=== PATIENT | female | born 1975 | race Caucasian/White ===

== ENCOUNTER 2023-03-21 11:19 | Outpatient (REF) | payer BC, SELFPAY ==
--- NOTE | ~2023-03-21 | XR_ITS ---
EXAMINATION: XR CHEST 2 VIEW CLINICAL INFORMATION: Bronchitis COMPARISON: None TECHNIQUE: PA and lateral views of the chest obtained. FINDINGS: The lungs are clear. There are no pleural effusions. The cardiomediastinal silhouette is nonenlarged. Prior sternotomy, valve replacement and vascular stent are noted. XR/XR chest 2V IMPRESSION: No acute cardiopulmonary disease.
[2023-03-21 13:33] LABS: MANUAL DIFF FLAG NO
[2023-03-21 13:51] LABS: Basophils Absolute Auto 0.1 X10*3/uL (0.0-0.2); Basophils Percent Auto 1.2 % (0-2); Eosinophils Absolute Auto 0.5 X10*3/uL (0.0-0.4); Eosinophils Percent Auto 4.9 % (0-4); Hematocrit 39.5 % (37.0-47.0); Hemoglobin 12.9 g/dl (12.0-16.0); Imm Gran Abs Auto 0.05 X10*3/uL (0.00-0.03); Imm Gran Pct Auto 0.5 % (0.0-0.4); Lymphocytes Absolute Auto 1.8 X10*3/uL (1.2-4.9); Mean Corpuscular HGB Conc 32.7 g/dl (31.0-35.0); Mean Corpuscular Hemoglobin 30.1 pg (27.0-33.0); Mean Corpuscular Volume 92.3 fL (80.0-98.0); Mean Platelet Volume 10.2 fL (9.4-12.3); Monocytes Absolute Auto 0.5 X10*3/uL (0.1-1.2); Monocytes Percent Auto 5.5 % (2-11); Neutrophils Absolute Auto 6.5 x10*3/uL (2.0-8.3); Neutrophils Percent Auto 68.9 % (45-73); Platelet Count 385 X10*3/uL (160-400); Red Blood Count 4.28 X10*6/uL (4.20-5.50); Red Cell Distribution Width 13.1 % (11.0-16.0); White Blood Count 9.5 X10*3/uL (4.8-10.8)
[2023-03-21 14:31] LABS: Alanine Aminotransferase 33 U/L (0-31); Albumin Level 4.4 g/dL (3.5-5.0); Alkaline Phosphatase 62 U/L (39-117); Anion Gap 11 (12-20); Aspartate Amino Transferase 28 U/L (5-31); Bilirubin Total 0.4 mg/dL (0.0-1.0); Blood Urea Nitrogen 8 mg/dL (9-16); C Reactive Protein 0.85 mg/dL (< or = 0.50); Calcium 9.6 mg/dL (8.4-10.2); Carbon Dioxide 25 mmol/L (22-29); Chloride 107 mmol/L (96-108); Estimated Glomerular Filt Rate > 60; Glucose Random 99 mg/dL (60-115); Potassium 3.8 mmol/L (3.3-5.1); Sodium 139 mmol/L (135-145)
== END 2023-03-21 11:20 | disposition home or self-care (01) ==
LOC: HO.HMGCX 11:19
PROVIDERS: PCP Internal Medicine; Visit Provider Internal Medicine
DX: J40 Bronchitis, not specified as acute or chronic (principal)
CPT/HCPCS: 36415; 71046; 80053; 85025; 86140

== ENCOUNTER 2023-12-29 08:08 | Outpatient (REF) | payer BC, SELFPAY ==
[2023-12-29 11:40] LABS: MANUAL DIFF FLAG NO
[2023-12-29 11:48] LABS: Basophils Absolute Auto 0.1 X10*3/uL (0.0-0.2); Basophils Percent Auto 0.9 % (0-2); Eosinophils Absolute Auto 0.3 X10*3/uL (0.0-0.4); Eosinophils Percent Auto 3.8 % (0-4); Hematocrit 39.8 % (37.0-47.0); Hemoglobin 13.3 g/dl (12.0-16.0); Imm Gran Abs Auto 0.04 X10*3/uL (0.00-0.03); Imm Gran Pct Auto 0.5 % (0.0-0.4); Lymphocytes Absolute Auto 3.2 X10*3/uL (1.2-4.9); Lymphocytes Percent Auto 37.3 % (20-40); Mean Corpuscular HGB Conc 33.4 g/dl (31.0-35.0); Mean Corpuscular Hemoglobin 30.9 pg (27.0-33.0); Mean Corpuscular Volume 92.3 fL (80.0-98.0); Mean Platelet Volume 9.8 fL (9.4-12.3); Monocytes Absolute Auto 0.7 X10*3/uL (0.1-1.2); Monocytes Percent Auto 8.7 % (2-11); Neutrophils Absolute Auto 4.1 x10*3/uL (2.0-8.3); Neutrophils Percent Auto 48.8 % (45-73); Platelet Count 339 X10*3/uL (160-400); Red Blood Count 4.31 X10*6/uL (4.20-5.50); Red Cell Distribution Width 13.1 % (11.0-16.0); White Blood Count 8.5 X10*3/uL (4.8-10.8)
[2023-12-29 12:22] LABS: Alanine Aminotransferase 27 U/L (0-31); Albumin Level 4.1 g/dL (3.5-5.0); Alkaline Phosphatase 63 U/L (39-117); Anion Gap 13 (12-20); Aspartate Amino Transferase 21 U/L (5-31); Bilirubin Total 0.4 mg/dL (0.0-1.0); Blood Urea Nitrogen 11 mg/dL (9-16); Calcium 9.3 mg/dL (8.4-10.2); Carbon Dioxide 22 mmol/L (22-29); Chloride 108 mmol/L (96-108); Cholesterol 176 mg/dL (<200); Estimated Glomerular Filt Rate > 60; Glucose Fasting 91 mg/dL (60-99); HDL Cholesterol 51 mg/dL (>40); LDL Cholesterol Calculated 106 mg/dL (<100); Potassium 4.3 mmol/L (3.3-5.1); Sodium 139 mmol/L (135-145); Thyroid Stimulating Hormone 3.57 uIU/mL (0.32-4.0); Total Protein 7.3 g/dL (6.5-8.0); Triglycerides 98 mg/dL (<150); Vitamin D 25-OH Total 32.6 ng/mL (>30)
== END 2023-12-29 08:09 | disposition home or self-care (01) ==
LOC: HO.HMGCLDS 08:08
PROVIDERS: PCP Internal Medicine; Visit Provider Internal Medicine
DX: Z00.00 Encounter for general adult medical examination without abnormal findings (principal); I34.0 Nonrheumatic mitral (valve) insufficiency; Q25.1 Coarctation of aorta
CPT/HCPCS: 36415; 80053; 80061; 82306; 84443; 85025

== ENCOUNTER 2024-07-25 15:14 | Outpatient (AMB) | payer BC, SELFPAY ==
--- NOTE | 2024-07-25 15:26 | A.OFFPC_ITS ---
Vital Signs 07/25/24 15:27 Height 5 ft 4.25 in Weight 199 lb BMI 33.9 BP 118/72 Blood Pressure Location Lt brachial Position Sitting Pulse 103 H Temp 97.3 F Pulse Oximetry (%) 99 Intake Visit Reasons: 6 month follow up Intake Note: Patient in for a 6 month follow up. She has no health concerns. Allergies No Known Allergies Allergy (Verified 07/25/24 16:03) Medication List - Last Reconciled 07/25/24 by Stephanie Vargas PA-C aspirin 81 mg PO DAILY multivitamin 1 tab PO DAILY semaglutide (Ozempic) 0.25 mg (0.368 mL) subcut QWEEK PFS Surgical History H/O section Status post aortic coarctation stent placement Physical exam (Primary Care) Vital Signs: Last Vital Signs Temp 97.3 F 07/25/24 15:27 Pulse 103 H 07/25/24 15:27 BP 118/72 07/25/24 15:27 Pulse Ox 99 07/25/24 15:27 Care Plan Goal for BP management: 130/80 within goal today BMI result Body Mass Index 33.9 BMI Assessment/Plan discussion: High BMI High, discussed plan: lifestyle, weight reduction, dietary, physical activity, alcohol moderation and other (Refer to site manager along with attempt to start patient on Ozempic) Coding Level of Care Code New Pt Level 4 (13840) Complex EM visit Add On G2211 Diagnoses Obesity (BMI 30.0-34.9) E66.811 Mitral valve regurgitation I34.0 Bicuspid aortic valve Q23.81 Coarctation of aorta Q25.1 Hyperlipidemia E78.5 Assessment & Plan Assessment & Plan (1) Obesity (BMI 30.0-34.9): Code(s): E66.811 - Obesity, class 1 Category: Medical Plan: Patient has lost approximately 7 lb since her last visit in December. She continues to diet and exercise. Will refer to site manager and sent a prescription for Ozempic for obesity, heart disease and hyperlipidemia. Condition is chronic and stable. (2) Mitral valve regurgitation: Comment: History of mitral valve repair Code(s): I34.0 - Nonrheumatic mitral (valve) insufficiency Category: Medical Plan: Condition is chronic and stable. Patient being followed by cardiology at [facility] will retrieve records. (3) Bicuspid aortic valve: Code(s): Q23.81 - Bicuspid aortic valve Category: Medical Plan: Condition is chronic and stable. Patient being followed by cardiology at [facility] will retrieve records. (4) Coarctation of aorta: Code(s): Q25.1 - Coarctation of aorta Category: Medical Plan: Condition is chronic and stable. Patient being followed by cardiology at [facility] will retrieve records. (5) Hyperlipidemia: Code(s): E78.5 - Hyperlipidemia, unspecified Category: Medical Plan: Will repeat labs. Patient will continue to trial diet exercise. Will attempt to send Ozempic to the patient's pharmacy for weight loss, heart disease and hyperlipidemia control. Patient does not want to be started on a statin at this time. Condition is chronic and stable will continue to monitor. Plan Plan - Continue aspirin therapy for cardiac protection. - Reassess lipid profile to evaluate LDL cholesterol levels. - Referral to a site manager for dietary consultation and support. - Submit a prescription request for Ozempic weekly 25 units) to aid in weight loss, if insurance approved. - Order blood work to include CBC, Hemoglobin A1c, comprehensive metabolic panel, lipid panel, liver enzymes, magnesium, TSH, , and Vitamin D, with instructions to fast prior to testing. Orders: Orders Complete Blood Count Auto Diff Today E66.811 - Obesity, class 1, I34.0 - Nonrheumatic mitral (valve) insufficiency, Q23.81 - Bicuspid aortic valve, Q25.1 - Coarctation of aorta Magnesium Today E66.811 - Obesity, class 1, I34.0 - Nonrheumatic mitral (valve) insufficiency, Q23.81 - Bicuspid aortic valve, Q25.1 - Coarctation of aorta TSH reflex Free T4 Today E66.811 - Obesity, class 1, I34.0 - Nonrheumatic mitral (valve) insufficiency, Q23.81 - Bicuspid aortic valve, Q25.1 - Coarctation of aorta Vitamin B12 and Folate Today E66.811 - Obesity, class 1, I34.0 - Nonrheumatic mitral (valve) insufficiency, Q23.81 - Bicuspid aortic valve, Q25.1 - Coarctation of aorta Erythrocyte Sedimentation Rate Today E66.811 - Obesity, class 1, I34.0 - Nonrheumatic mitral (valve) insufficiency, Q23.81 - Bicuspid aortic valve, Q25.1 - Coarctation of aorta Hemoglobin A1c Today E66.811 - Obesity, class 1, I34.0 - Nonrheumatic mitral (valve) insufficiency, Q23.81 - Bicuspid aortic valve, Q25.1 - Coarctation of aorta Comprehensive [place]. Panel Fast Today E66.811 - Obesity, class 1, I34.0 - Nonrheumatic mitral (valve) insufficiency, Q23.81 - Bicuspid aortic valve, Q25.1 - Coarctation of aorta Liver Panel Today E66.811 - Obesity, class 1, I34.0 - Nonrheumatic mitral (valve) insufficiency, Q23.81 - Bicuspid aortic valve, Q25.1 - Coarctation of aorta Lipid Panel Today E66.811 - Obesity, class 1, I34.0 - Nonrheumatic mitral (valve) insufficiency, Q23.81 - Bicuspid aortic valve, Q25.1 - Coarctation of aorta Vitamin D 25-OH Total Today E66.811 - Obesity, class 1, I34.0 - Nonrheumatic mitral (valve) insufficiency, Q23.81 - Bicuspid aortic valve, Q25.1 - Coarctation of aorta C Reactive Protein Today E66.811 - Obesity, class 1, I34.0 - Nonrheumatic mitral (valve) insufficiency, Q23.81 - Bicuspid aortic valve, Q25.1 - Coarctation of aorta Referrals Supervisor Public Health Nursing Nutrition Referral E66.9 - Obesity, unspecified Medications: New semaglutide (Ozempic) for 4 weeks 0.25 mg (0.368 mL) subcut QWEEK 3 mL 1RF obesity Patient Instructions: Patient Instructions - Continue aspirin and multivitamin as prescribed. - Visit the lab for blood tests as ordered; fast before the appointment. - Await notification about Ozempic approval from your pharmacy. - Consult with the site manager once referred to discuss diet and lifestyle. - Follow up in one month or earlier if any concerns arise before that time. - Contact the office if you experience any new symptoms or issues with medications. Scribe Plan - Not visible on output: History of Present Illness The patient is a 49-year-old female presenting with concerns related to weight management and potential obesity treatment. She is attending a six-month follow- up visit to assess progress and discuss ongoing management options. Her pertinent medical history includes congenital heart disease and a history of open heart surgery performed in 2007, entailing a mitral valve repair and bicuspid aortic valve monitoring, which remains unrepaired. She is currently on a regimen of aspirin and a multivitamin for these conditions. The patient has attempted weight loss via [employer] upon previous medical advice. Initially successful, losing approximately seven pounds, progress stalled, possibly due to the holiday season. Her weight decreased from 206 pounds to 199 pounds. Despite these efforts, she is interested in exploring additional weight management options, potentially including pharmacotherapy. Her last blood work, conducted approximately seven months prior, showed elevated LDL cholesterol at 106 mg/dL, prompting a re-evaluation during this visit. She denies any significant changes in symptoms but expresses a willingness to try alternative management strategies, noting insurance coverage may support pharmaceutical interventions for weight loss. Social History - The patient occasionally consumes alcohol but does not smoke. - Engaged in a weight loss program ([employer]) as part of lifestyle changes. - No family history of thyroid disease, colon cancer, or breast cancer reported. Review of Systems - Cardiovascular: Denies recent chest pain or palpitations. - Endocrine: Denies any new thyroid-related symptoms. - Gastrointestinal: Denies any new digestive symptoms. - Hematologic: Denies significant bleeding or bruising. - Respiratory: Denies recent cough, wheezing, or shortness of breath. Physical Exam Appearance: Alert. Oriented X3. No acute distress. Head: Normal external exam. Normocephalic. Atraumatic. Eyes: Pupils are equal, round, and reactive to light. Extraocular movements intact. Conjunctiva and sclera normal. Eyelids normal. Ears: External auditory canal normal. Tympanic membranes normal. Throat: Pharynx normal. Uvula midline. Moist mucous membranes. Neck: Normal inspection. Neck supple. Full range of motion. No adenopathy. Thyroid Normal. No meningeal signs. No neck mass noted. Cardiovascular: Normal heart rate and rhythm. Heart sound normal. Slight murmur noted. Pulses normal throughout. Respiratory: No respiratory distress. Painless inspiration. Breath sounds normal. No wheezes/rales/rhonchi noted. Chest nontender. No accessory muscle usage noted or decreased air movement noted. Abdomen: Soft and nontender. Bowel sounds normal in all 4 quadrants. No distention noted. No organomegaly noted. No visible injury noted. Back: No costovertebral angle tenderness. Full range of motion noted. Skin: Skin warm and dry. Normal skin color. Normal skin turgor. No rashes/lesions/lacerations noted. Extremities: No lower extremity edema. Extremities exhibit normal range of motion. Extremities nontender. Neuro: Oriented X 3. No motor deficit. No sensory deficit. Reflexes normal. Results - Labs: Elevated LDL cholesterol previously at 106 mg/dL. Plan - Continue aspirin therapy for cardiac protection. - Reassess lipid profile to evaluate LDL cholesterol levels. - Referral to a site manager for dietary consultation and support. - Submit a prescription request for Ozempic weekly 25 units) to aid in weight loss, if insurance approved. - Order blood work to include CBC, Hemoglobin A1c, comprehensive metabolic panel, lipid panel, liver enzymes, magnesium, TSH, , and Vitamin D, with instructions to fast prior to testing. Patient was informed and verbally consented to the use of an ambient scribe for clinic note documentation during this visit. Discussion Notes During this visit, we discussed the progress of the patient's weight management efforts and reviewed options for medical intervention. I advised that should the patient's insurance approve the coverage, we could trial Ozempic, specifically initiated at a dose of 25 units weekly, considering her background of congenital heart disease, which might leverage approval based on associated comorbidities. We also comprehensively reviewed the required blood work to ensure a holistic assessment of the patient's general health status and potential metabolic concer ns. A referral to a site manager will aid in reinforcing dietary modifications alongside pharmacological intervention. Follow-up in one month was suggested to reassess the progress, review blood work outcomes, and confirm insurance feedback on the prescribed Ozempic. The patient agreed to this plan and expressed understanding and consent for the suggested interventions. Patient Instructions - Continue aspirin and multivitamin as prescribed. - Visit the lab for blood tests as ordered; fast before the appointment. - Await notification about Ozempic approval from your pharmacy. - Consult with the site manager once referred to discuss diet and lifestyle. - Follow up in one month or earlier if any concerns arise before that time. - Contact the office if you experience any new symptoms or issues with medications.
[2024-07-25 15:27] VITALS: BP 118/72; PULSE 103; TEMP 36.3; O2SAT 99; BMI 33.9
== END 2024-07-25 15:55 | disposition home or self-care (01) ==
LOC: HO.HMCSH 15:14
PROVIDERS: PCP Internal Medicine; Visit Provider Physician Assistant Medical
DX: E66.811 Obesity, class 1 (principal); I34.0 Nonrheumatic mitral (valve) insufficiency; Q23.81 Bicuspid aortic valve; Q25.1 Coarctation of aorta; E78.5 Hyperlipidemia, unspecified

== ENCOUNTER → 2024-07-25 15:14 | Outpatient (BNVA) | payer BC, SELFPAY | PROVIDERS: PCP Internal Medicine; Visit Provider Physician Assistant Medical ==

== ENCOUNTER 2024-07-26 07:35 | Outpatient (REF) | payer BC, SELFPAY ==
[2024-07-26 10:06] LABS: MANUAL DIFF FLAG NO
[2024-07-26 10:20] LABS: Basophils Absolute Auto 0.1 X10*3/uL (0.0-0.2); Basophils Percent Auto 0.6 % (0-2); Eosinophils Absolute Auto 0.2 X10*3/uL (0.0-0.4); Eosinophils Percent Auto 2.5 % (0-4); Hemoglobin 13.8 g/dl (12.0-16.0); Imm Gran Abs Auto 0.04 X10*3/uL (0.00-0.03); Imm Gran Pct Auto 0.4 % (0.0-0.4); Lymphocytes Absolute Auto 2.5 X10*3/uL (1.2-4.9); Lymphocytes Percent Auto 26.8 % (20-40); Mean Corpuscular HGB Conc 33.7 g/dl (31.0-35.0); Mean Corpuscular Hemoglobin 30.7 pg (27.0-33.0); Mean Corpuscular Volume 91.1 fL (80.0-98.0); Mean Platelet Volume 9.9 fL (9.4-12.3); Monocytes Absolute Auto 0.7 X10*3/uL (0.1-1.2); Monocytes Percent Auto 7.8 % (2-11); Neutrophils Absolute Auto 5.9 x10*3/uL (2.0-8.3); Neutrophils Percent Auto 61.9 % (45-73); Platelet Count 359 X10*3/uL (160-400); Red Cell Distribution Width 12.8 % (11.0-16.0); White Blood Count 9.5 X10*3/uL (4.8-10.8)
[2024-07-26 10:35] LABS: Estimated Average Glucose 105 mg/dL; Hemoglobin A1C 126.2693 umol/L; Hemoglobin A1c % 5.3 % (<6.0); Total Hemoglobin (HGBA1C) 3625.3814 umol/L
[2024-07-26 10:50] LABS: Alanine Aminotransferase 18 U/L (0-31); Albumin Level 4.3 g/dL (3.5-5.0); Alkaline Phosphatase 54 U/L (39-117); Anion Gap 10 (12-20); Aspartate Amino Transferase 24 U/L (5-31); Bilirubin Direct 0.2 mg/dL (0.0-0.5); Bilirubin Total 0.5 mg/dL (0.0-1.0); Blood Urea Nitrogen 13 mg/dL (9-16); C Reactive Protein 0.69 mg/dL (< or = 0.50); Calcium 9.4 mg/dL (8.4-10.2); Carbon Dioxide 22 mmol/L (22-29); Chloride 111 mmol/L (96-108); Cholesterol 172 mg/dL (<200); Estimated Glomerular Filt Rate > 60; Glucose Fasting 96 mg/dL (60-99); HDL Cholesterol 54 mg/dL (>40); LDL Cholesterol Calculated 99 mg/dL (<100); Magnesium 1.9 mg/dL (1.6-2.6); Potassium 4.2 mmol/L (3.3-5.1); Sodium 139 mmol/L (135-145); Total Protein 7.9 g/dL (6.5-8.0); Triglycerides 97 mg/dL (<150)
[2024-07-26 10:57] LABS: Erythrocyte Sedimentation Rate 14 MM/HR (0-20)
[2024-07-26 11:09] LABS: Folate 15.8 ng/mL (> or = 4.0); Vitamin B12 425 pg/mL (200-900)
[2024-07-26 11:12] LABS: TSH reflex Free T4 3.42 uIU/mL (0.32-4.0)
== END 2024-07-26 07:36 | disposition home or self-care (01) ==
LOC: HO.HMGCLDS 07:35
PROVIDERS: PCP Internal Medicine; Visit Provider Physician Assistant Medical
DX: Q25.1 Coarctation of aorta (principal); Q23.81 Bicuspid aortic valve; I34.0 Nonrheumatic mitral (valve) insufficiency; E66.811 Obesity, class 1; Z13.1 Encounter for screening for diabetes mellitus
CPT/HCPCS: 36415; 80053; 80061; 80076; 82248; 82306; 82607; 82746; 83036; 83735; 84443; 85025; 85652; 86140

== ENCOUNTER 2024-09-26 15:46 | Outpatient (AMB) | payer BC, SELFPAY ==
--- NOTE | 2024-09-26 15:45 | A.OFFPC_ITS ---
Vital Signs 09/26/24 16:01 Height 5 ft 3.5 in Weight 200 lb BMI 34.9 BP 140/80 H Blood Pressure Location Rt brachial Pulse 77 Pulse Source Pulse Oximeter Temp 97.3 F Pulse Oximetry (%) 99 Intake Visit Reasons: follow up Allergies No Known Allergies Allergy (Verified 09/26/24 17:00) Medication List - Last Reconciled 09/26/24 by Stephanie Vargas PA-C aspirin 81 mg PO DAILY metformin 500 mg PO DAILY multivitamin 1 tab PO DAILY PFSH Medical History Vitamin D deficiency Obesity (BMI 30.0-34.9) Mitral valve regurgitation Bicuspid aortic valve Coarctation of aorta Splenic infarct Hyperlipidemia Surgical History H/O section Status post aortic coarctation stent placement Questionnaire PHQ-9 Over the last 2 weeks, how often have you been bothered by any of the following problems? 1. Little interest or pleasure in doing things: not at all 2. Feeling down, depressed, or hopeless: not at all 3. Trouble falling or staying asleep, or sleeping too much: not at all 4. Feeling tired or having little energy: not at all 5. Poor appetite or overeating: not at all 6. Feeling bad about yourself - or that you are a failure or have let yourself or your family down: not at all 7. Trouble concentrating on things, such as reading the newspaper or watching te levision: not at all 8. Moving or speaking so slowly that other people could have noticed. Or the opposite - being so fidgety or restless that you have been moving around a lot more than usual: not at all 9. Thoughts that you would be better off or of hurting yourself in some way: not at all Total score: 0 Depression Screening Interpretation: Negative Depression Screening Done: Yes 05157 - PHQ-9 Billing: Yes Source: Developed by Drs. Sukhjinder La, Abbie Lovett, Benjy Glover and colleagues, with an educational lakshmi from [email or web address]. Thrive Questionnaire Date Thrive assessed: 09/26/24 I am a: Patient What is your living situation today?: I have a steady place to live Within the past 12 months, did the food you bought not last and you didn't have the money to get more?: Never true Within the past 12 months, did you worry whether your food would run out before you got money to buy more?: Never true Do you have trouble paying for medicines?: No Do you have trouble getting transportation to medical appointments?: No Do you have trouble paying your heating and electricity bill?: No Do you have trouble taking care of your child, family member or friend?: No Do you have trouble with day-to-day activities such as bathing, preparing meals, shopping, managing finances, etc.?: No Are you currently unemployed and looking for a job?: No Are you interested in more education?: No THRIVE Score: 0 AUDIT C Alcohol Use Questionnaire (AUDIT-C) 1. How often do you have a drink containing alcohol?: 2-4 times a month 2. How many drinks containing alcohol do you have on a typical day when you are drinking?: 1 or 2 3. How often do you have six or more drinks on one occasion?: Never Total Score: 2 Score Reviewed/Action Taken: No HERMES-7 AMB Questionnaire HERMES-7 Date HERMES - 7 assessed: 09/26/24 Feeling nervous, anxious, or on edge: 0 = Not at all Not being able to stop or control worryin = Not at all Worrying too much about different things: 0 = Not at all Trouble relaxin = Not at all Being so restless that it is hard to sit still: 0 = Not at all Becoming easily annoyed or irritable: 0 = Not at all Feeling afraid as if something awful might happen: 0 = Not at all Total HERMES-7 score (0-4 normal; 5-9 mild; 10-14 moderate; 15-21 severe): 0 Source: Developed by Drs. Sukhjinder La, Abbie Lovett, Benjy Glover and colleagues, with an educational lakshmi from [email or web address]. HERMES-7 Assessment Billing HERMES-7 Assessment Tool: HERMES-7 Assessment 67842 Physical exam (Primary Care) Vital Signs: Last Vital Signs Temp 97.3 F 09/26/24 16:01 Pulse 77 09/26/24 16:01 BP 140/80 H 09/26/24 16:01 Pulse Ox 99 09/26/24 16:01 Care Plan Goal for BP management: <130/80 patient is currently on aspirin 81 mg. She has been taking her blood pressure at home with a machine that her insurance sent her and her blood pressure has been 120 over 80s. It may be that we have a small cuff here in the office and not her appropriate size. Will continue current regimen. Patient does not need any antihypertensive at this time. BMI result Body Mass Index 34.9 BMI Assessment/Plan discussion: High (Patient was also started on metformin 500 mg by her insurance company) BMI High, discussed plan: lifestyle, weight reduction, dietary, physical activity and alcohol moderation PHQ-9: PHQ-9 Score PHQ-9: Total score 0 09/26/24 17:06 Depression Screening Interpretation: Negative Thrive Assessment: Date of Thrive Assessment Date Thrive assessed 09/26/24 09/26/24 17:06 Coding Level of Care Code Est Pt Level 3 (57382) Complex EM visit Add On G2211 Diagnoses Obesity (BMI 30.0-34.9) E66.811 Additional Codes HERMES-7 Assessment Billing - HERMES-7 Assessment Tool: HERMES-7 Assessment 38921 ([id number]) PHQ-9 - 87212 - PHQ-9 Billing: Yes ([id number]) Assessment & Plan Assessment & Plan (1) Obesity (BMI 30.0-34.9): Code(s): E66.811 - Obesity, class 1 Category: Medical Plan: Metformin therapy will be continued to assist in weight management. The off- label use for weight reduction is being monitored, and titration of dose is scheduled in two weeks. Patient to return in 3 months. Condition is chronic and stable continue to monitor. Plan Plan Patient was informed and verbally consented to the use of an ambient scribe for clinic note documentation during this visit. 1. Prediabetes Suspicion Monitor and encourage lifestyle changes to avoid diabetes progression. 2. Elevated Blood Pressure Monitor at home; follow-up in two weeks with results. 3. Status Post Mitral Valve Surgery Routine cardiovascular follow-up to prevent complications. 4. Hypertension Ensure control through lifestyle adjustments and monitoring. 5. Hyperlipidemia Follow-up labs and potential medication adjustments for lipid management. 6. Obesity Metformin therapy will be continued to assist in weight management. The off- label use for weight reduction is being monitored, and titration of dose is scheduled in two weeks. 7. Heart Failure Ongoing cardiovascular monitoring due to historical heart failure. Discussion Notes During the visit, we discussed issues related to the insurance company?s restrictive approach, which affects the patient?s access to weight loss options. Off-label metformin use was sanctioned based on cost and availability. The prescription's limitations were highlighted alongside a consideration for follow-up evaluations to ensure efficacy and safety. The patient received instructions to use an everett for health tracking, monitoring blood pressure at home, and submitting necessary health data. Potential adjustments to medication and follow-up were considered if the patient encounters adverse outcomes or inadequate response to the current treatment. Patient Instructions: Patient Instructions - Continue taking metformin as prescribed and increase the dose in two weeks as instructed. - Monitor your blood pressure regularly at home and record readings. - Use the [employer] everett for tracking weight and lifestyle as requested by insurance. - Report any significant changes in health or responses to the metformin therapy. - Follow up with plans to visit the office in three months or sooner if complications arise. - Maintain dietary modifications to support weight and lipid management. - Stay informed about any updates regarding insurance coverage and approved interventions. Scribe Plan - Not visible on output: History of Present Illness The patient is a 49-year-old female presenting with issues related to ongoing weight management and insurance coverage for weight loss medication. The patient's insurance has become more stringent as of July 04, notably impacting her access to different treatment options. Although she is not diabetic, she was started on metformin, which her provider prescribed off-label for weight loss due to its availability and affordability. She began the medication earlier this week and plans to increase her dosage in two weeks. Her challenges include adherence to insurer-mandated digital tracking via the [employer] everett without sufficient coverage for alternative therapies, such as injectables, due to upfront cost restrictions. The patient has a medical history significant for heart failure, post-mitral valve regurgitation correction, obesity, hypertension, and hyperlipidemia. While she has performed routine blood pressure monitoring at home yielding typical results, today's clinical reading showed an elevated level, and she recognizes stress and recent medication adjustments as possible factors. Social History - Patient reports issues with insurance coverage impacting her access to weight loss medications. - Use of [employer] everett for health monitoring, requiring lifestyle and weight tracking for insurance purposes. - Limited physical activity mentioned, possibly implicating in the ongoing management of obesity. - Currently adjusting to medication regimens, including the use of metformin for weight management. - Patient highlights issues with [place] dietary norms and an expressed concern over accessing affordable health resources. Review of Systems - Cardiovascular: Reports previous history of heart failure. - Endocrine: Denies diabetes; prescribed metformin for weight management. - General: Reports challenges managing weight; concerned about insurance obstacles affecting treatment. Physical Exam Appearance: Alert. Oriented X3. No acute distress. Head: Normal external exam. Normocephalic. Atraumatic. Eyes: Pupils are equal, round, and reactive to light. Extraocular movements intact. Conjunctiva and sclera normal. Eyelids normal. Throat: Moist mucous membranes. Neck: Normal inspection. Neck supple. Full range of motion. Cardiovascular: Normal heart rate and rhythm. Respiratory: No respiratory distress. Painless inspiration. Back: Full range of motion noted. Skin: Skin warm and dry. Normal skin color. Extremities: NExtremities exhibit normal range of motion. Neuro: Oriented X 3. Results - Labs: Recent unspecified blood work assessments conducted; additional work required by insurance-directed facility.
[2024-09-26 16:01] VITALS: BP 140/80; PULSE 77; TEMP 36.3; O2SAT 99; BMI 34.9
--- OUTSIDE RECORDS SUMMARY | 2024-09-26 18:45 | XMS_ITS ---
Author Name [facility] Organization Unknown Encounters Encounter Type Encounter Reason Primary Diagnosis Location Date Ambulatory [facility] 08/16/2024 Ambulatory [facility] 08/16/2024 Ambulatory [facility] 08/16/2024 Ambulatory [facility] 08/16/2024 Ambulatory [facility] 08/16/2024 Ambulatory [facility] 08/03/2024 Ambulatory [facility] 08/03/2024 Ambulatory [facility] 08/03/2024 Ambulatory [facility] 08/03/2024 Ambulatory [facility] 08/03/2024 Ambulatory [facility] 08/03/2024 Ambulatory [facility] 08/03/2024 Ambulatory [facility] 08/03/2024 Ambulatory [facility] 08/03/2024 Care Team Organization Name Specialty Phone Email Start Date End [facility] 05/18/2024
--- OUTSIDE RECORDS SUMMARY | 2024-09-26 18:45 | XMS_ITS | Data Portability ---
Author Organization [employer] [facility] [employer] Address [address] [place] [phone] Assessment Encounter Date Assessment Date Assessment LastModified by Organization Details LastModified Time 09/24/2024 09/24/2024 49 yr old Female with class 2 Obesity, h/o Heart failure s/p mitral valve repair (after 1st child), mild HLD, elevate hsCRP, vitamin D deficiency, coarctation of aorta presents for evaluation of weight management. Class 2 Obesity --Reviewed basic physiology of weight regulation --Low GI diet, protein breakfast, food order --Exercise as tolerated , CV and resistance training --Utilize [employer] --RD referral --Support groups --Track weight weekly online --Shift calories to earlier in the day --Reviewed medications associated with weight gain, counseled on alternatives to be discussed with prescribing provider - none --AOM selection ? discussed dosing and common side effects: will start metformin ER 500mg daily x 2 weeks, then 1g/day --Future: increasing dose of AOM/alternative AOMs: topiramate, bupropion/naltrexo ne if BP well controlled; caution phentermine considering CV history --previously tried AOMs and reason for discontinuation: none --[If BMI >40 or BMI>35 + comorbidity]Consid er referral to bariatric surgery- not discussed --[If BMI >30] Consider referral to Gastroenterology for procedure (balloon, ESG) - not discussed The patient verbalized understanding of all instructions/educa tion received today regarding the plan of care and/or diagnosis. The patient has been educated and demonstrates understanding of the risks and benefits of the prescribed medication/s today and consents to treatment with these medication/s. Total time spent on the date of the encounter = 75 minutes, which includes visit preparation time, time reviewing and independently interpreting results, [id number] time with the patient, counseling/educati ng patient/family members/caregivers , ordering medications/tests/ procedures, care coordination, documenting clinical information in the electronic medical record, following up on referrals/results and communicating with related healthcare professionals as needed. Followup: Lab Order Set: Appt w/ MD: Appt w/ MAIL OFFICER: 3 months Appt w/ RD: declined- working with RD through PCP Prior Authorization: Not available 09/24/2024 12:45:01 Plan of Treatment Reminders Order Date Submit Date Provider Last Modified By Organization Details Last Modified Time Details Appointments FOLLOW-U P (FV)-65 2024 10:00A M MAXIMUS TADEO Not available Not available Not available Lab None recorded . Referral None recorded . Procedures None recorded . Surgeries None recorded . Imaging None recorded . Medication Orders metformi n ER 500 mg tablet,e xtended release 24 hr 2024 025 [facility]armacy #[id number], [address] [place], [address], 09/24/2024 11:05:11 Patient TargetsNo targets recorded. Patient Instructions Encounter Date Encounter Id Patient Instructions Last Modified By Organization Details Last Modified Time 09/24/2024 [id number] Shiva Dixon, It was great to meet you today! Here are some osei takeaways (and things we may not have discussed). --Utilize [employer]rett ([employer]) - modules and food log - Start with Healthy Eating for Weight Loss, and then continue modules, try once weekly AND try logging meals, snacks, beverages to help keep you accountable -- Log weight 1-2 times weekly in [employer]). Daily or weekly is perfectly acceptable. Keep scale on hard surface, tap scale with your toes/foot to wake it up, and then step on scale. Try to weigh in the morning after emptying your bladder, with similar clothing from day to day. --Log blood pressure at least once in [employer]). Best practice is to sit in a chair with back supported, feet on the ground and place arm across table (kitchen/dining room table or desk is ideal), place cuff on arm. Wait 5 minutes, and then check your blood pressure. Goal BP <130/80, if higher, check weekly. Otherwise, check before visits with any of the clinicians with [employer]. --If you have any difficulties with your devices (weight scale and BP cuff) review the help section in [employer] If that does not resolve the concern, please call [phone]. Typically you just have to remove devices from the box and start using, they should be programmed with your [employer]) before they are shipped out. -- Diet: High protein breakfast, low glycemic eating -- Food order: protein, vegetable, starch/carb -- Minimize packaged/processed food, added sugar, artificial sweetener -- Try to stop eating earlier, even a few days/week -- Exercise: 30 minutes daily (e.g 3 5-10 minute walk breaks throughout the day) -- Avoid sugar sweetened beverages --Please call our office to schedule follow up with me in 3 months at [phone] --Best to use the portal for any electronic communication, so be sure to register for an account if you have not already. I look forward to working with you! Thank you for allowing me to be a part of your care team, Osiris Melendrez NP [employer] Supplement 220.0 lbs, BMI 39.0,itamin D 2,000 IU daily Medication: -We agreed to start Metformin ER 500 mg 1 pill at a meal, after 1-2 weeks, increase to 2 pills daily, either both at same meal or 1 pill twice daily with a meal. Do not increase if not tolerating, and if you increase and do not tolerate after 2 weeks, reverse to previous dose. -Metformin Side Effects: occasional nausea, loose stool, diarrhea, abdominal pain, typically dose and formulation dependant, which is why we prescribe extended release and start low and increase slowly. Taking it with food helps reduce side effects. If diarrhea happens and does not improve after a few weeks, let me know. Do not increase the dose if you have diarrhea. You will need to stop metformin if you require the use of any iodine based contrast typically associated with a CT scan. Also, some people will develop Vitamin B 12 deficiency, so this is something we will watch. -Sometimes the pill is seen in the stool. This is normal for this medication, and is called a shadow pill. You are absorbing the medication. -Please report any side effects/issues -Reach out if you have any questions/concerns Metformin - Metformin helps improve blood sugar by helping your liver produce less sugar, and lower blood sugar means your body stores less energy in fat tissue, aiding in weight loss. -It helps your muscles take in more carbs from your blood, by helping your muscles absorb more carbs, metformin ensures that those calories are used for energy (to fuel exercise and physical activity) rather than remaining in the blood stream where it can be converted to a storage from of fat & sugar. -Metformin stops your body from breaking down too much fat into sugars. When your body breaks down less fat into sugar, it means there are fewer free fatty acids in your blood. Lower levels of these acids can help prevent fat storage, aiding in weight loss. -It helps your body use insulin more effectively which can benefit appetite regulation and energy utilization from various fuels (carbs/fat) in the diet. -Metformin reduces the amount of calories your body absorbs from the food you eat by blocking absorption of carbs in the intestine -It increases certain hormones that help reduce your appetite, increase feelings of fullness and help with weight loss. Topiramate: Topiramate can help stop your body from making and storing new fat. It makes your body use more energy, which can help you burn more calories. Topiramate helps your body use insulin better, which can be important for weight loss. It helps to reduce your appetite and cravings, making it easier to eat less. Topiramate affects certain brain chemicals to help reduce hunger and improve mood, which can help with weight loss. It has a beneficial side effect called dysgeusia (alters taste) and specifically can affect the way that sweets, highly processed foods, and carbonated beverages taste, making them less desirable. FDA approved to prevent migraines, FDA approved for weight loss in combination with phentermine (Qsymia) but we often prefer to use it alone or separately for cost, etc. It is used off label for alcohol abuse, binge eating, night eating, insomnia, chronic pain syndromes, and mood disorders. FDA approved for kids ? 2 yo (seizure indication) (Qsymia ?12 yo) FDA approved since 1995 (monotherapy - seizure); 2012 as Qsymia FOR WOMEN OF REPRODUCTIVE AGE: A reliable method of contraception is advised while taking this medication as use of Topiramate during has been associated with teratogenicity and defects including cleft lip/palate. Medication must be discontinued if planning for at least 2 months prior to trial attempt. Bupropion: (used in combination with naltrexone to mimic Contrave) -Bupropion increases the levels of dopamine and norepinephrine in your brain. These chemicals can help control your appetite and reduce cravings, making it easier to stick to a healthy eating plan. -The medication activates pro-opiomelanocort in (POMC) and ? ? ?-melanocyte-stimu lating hormone (? ? ?-MSH), which are involved in regulating hunger and satiety. This means you feel full sooner and may eat less. -Bupropion is also approved for depression and to assist with smoking cessation. Bupropion can help with mood and smoking cessation if these would be added benefits.. -By increasing dopamine levels, bupropion can improve your mood and energy levels, making it easier to stay motivated and active, which is beneficial for weight loss. -Bupropion is a well-studied and FDA-approved medication for smoking cessation and depression, with an additional benefit of aiding in weight loss. Its safety profile is well-documented, making it a reliable choice for weight management. -FDA approved in combination with naltrexone as Contrave for weight management since 2013, but we often prefer to use it alone or prescribe it separately with naltrexone to optimize dosage, time, and cost. -FDA approved since 1984 Naltrexone: (used in combination with buproprion to mimic Contrave) -When naltrexone is added to bupropion, studies show that weight loss is significantly greater compared to using bupropion alone. This combination can provide a more effective weight loss solution. -Naltrexone works in the brain to minimize the signals that cause cravings and hunger. By decreasing these signals, it helps you feel less hungry and reduces the urge to eat. -Naltrexone decreases the effects of certain brain chemicals (beta-endorphins) that can interfere with weight loss. This helps maintain a better balance of hormones that control appetite and energy use. -Naltrexone is approved for treating alcohol use disorder and opioid dependence, indicating it is a well-studied and safe medication. Its use in weight management provides an additional benefit for those struggling with obesity. -Naltrexone affects specific pathways in the brain (melanocortin signaling pathways) that are involved in regulating appetite and energy balance. By targeting these pathways, naltrexone helps control weight more effectively. -FDA approved in combination with naltrexone as Contrave for weight management since 2013, but we often prefer to use it alone or prescribe it separately with naltrexone to optimize dosage, time, and cost. -FDA approved since 1983 as monotherapy for alcohol abuse Diet: -Low Glycemic index diet-Limit highly processed/sugary foods/improve quality of foods (whole foods) -Shift calories to earlier in the day -Protein breakfast -Food order (eat carbs last) -Evolve dietary related learning courses and articles Exercise : -Exercise as tolerated -Cardiovascular -Resistance training, aim for 2 days a week (nonconsecutive) -Evolve exercise related learning courses and articles WEB RESOURCES for EXERCISE https://www.Proginet/channel/UC_y VoaEhz_TqBpPG5COXt Ng/about Erma Wu MD, certified athletic trainer https://www.Proginet/c/dhi5kkqi Yes to next - mother daughter duo https://www.Proginet/@Kush Gifford/vide os and https://Equigerminal/ Elsy Olvera Walk at Home https://www.Temptster/membe rship FREE MEMBERSHIP and there is a pay membership - choose free membership https://[employer].MyStream / FREE MEMBERSHIP $$ https://Ante Up/ $359.95/year or $39.95/month https://www.Pusher.MyStream/ $119.99/year or $29.99/month Sleep Hygiene: -Setting a goal for at least 7 to 8 hours of sleep time per day. -Avoid engaging in any activity that requires sustained mental alertness while in bed. -Maintaining a regular bedtime and wake-up time -Avoid excessive naps during the daytime, if a nap is needed limit to 30 minuets -Minimizing environmental noise, bright lights (phones/TV/electro nahum devices), and extremes temperatures -Avoid alcohol, caffeinated beverages, and nicotine products for at least 4 hours prior to bedtime. -Avoid strenuous exercise and large meals for at least 4 hours prior to bedtime. Not available 09/24/2024 12:38:52 Reason for Referral None Reported. Problems Name Problem SNOMED Code Status Onset Date Resolution Date Notes Provider Name and Address Organization Details Recorded Time Obese class II 13453604912 4105 Active 2024 MAXIMUS TADEO [address] [place] [address],[address] [facility], [place], [address] , [facility]. - [facility] 11:04:02 Vitamin D deficien cy 47250899 Active 2024 5 - 25OHD 23 MAXIMUS TADEO [address] [place] [address],[address] [facility], [place], [address] , [facility]. - [facility] 12:32:12 C-reacti ve protein above referenc e range 30383771981 9104 Active 2024 5- hs CRP: 4.3 MAXIMUS TADEO [address] [place] [address],[address] [facility], [place], [address] , [facility]. - [facility] 12:32:27 Hyperlip idemia 86793871 Active 2024 MILD - 5- LIPID: TC 178, HDL 53, TG 130, LDL 102 MAXIMUS TADEO [address] [place] [address],[address], [place], [address] , [facility]. - [facility] 12:32:51 History of heart failure 245425553 Active 2024 after of first child, luisanashaonelia taina mitral valve repair, followed by cardiolo gy yearly with annual ECHO MAXIMUS TADEO [address] [place] [address],[address] [facility], [place], [address] , [facility]. - [facility] 12:43:18 Coarctat ion of aorta 0623415 Active 2024 followed by cardiolo gy yearly with annual ECHO MAXIMUS TADEO [address] [place] [address],[address] [place] [address], [place], [address] , [facility]. - [facility] 5 12:43:22 History of repair of mitral valve 835857379 Active 2024 followed by cardiolo gy yearly with annual ECHO MAXIMUS TADEO [address] [place] [address],[address] [place] [address], [place], [address] , [facility]. - [facility] 5 12:43:48 Endocrin e/metabo lic screenin g Completed 202409/24/2024 MAXIMUS TADEO [address] [place] [address],[address] [place] [address], [place], [address] , [facility]. - [facility] 5 10:15:55 Obesity 261093314 Active 2024 Marah Hartman [facility], [facility]. - [facility] 5 08:07:38 Problem Notes None recorded. Medical Equipment None Reported. Allergies No known drug allergies Medications Name Sig Start Date Stop Date Status Note LastModified by Organization Details LastModified Time clobetasol 0.05 % topical cream APPLY THIN COAT TO AFFECTED AREA TWICE A DAY active Not Available Not Available No t Available amoxicillin 500 mg tablet TAKE 4 TABLETS BY MOUTH 1 HOUR BEFORE DENTAL TREATMENT DIRECTED active Not Available Not Available No t Available sulfacetami de sodium 10 % eye drops INSTILL 1 DROP INTO AFFECTED EYE 4 TIMES A DAY FOR 3 DAYS 09/24 completed Not Available Not Available Not Available metformin ER 500 mg tablet,exte nded release 24 hr Take 1 tablet once daily by mouth with food, after 2 weeks increase to 1 tablet twice daily with food. (Please dispense generic XR equivalen t) 2024 active Not Available Not Available Not Avai lable aspirin 81 mg daily active Not Available Not Available No t Available Probiotic active Not Available Not Flavia ilable Not Available Vitals Date Recorded Body weight Body height Provider Name and Address Organization Details Last Updated DateTime 09/24/2024 91962.980760 4 g 162.56 cm Not Available [employer] - [employer] 09/24/2024 05:58:14 Date Recorded Body height Heart rate Body mass index (BMI) Body weight Systolic blood pressure Diastolic blood pressure Provider Name and Address Organization Details Last Updated DateTime 162.56 cm 79 /min 33.8 kg/m2 70462.6 2 g 126 mm[Hg] 85 mm[Hg] MAXIMUS TADEO [address] [place] [address],[address], [place], [address], [facility] [employer] - [facility] 12:21:31 Date Recorded Body weight Body height Provider Name and Address Organization Details Last Updated DateTime 09/25/2024 83880.505845 9 g 162.56 cm Not Available [employer] [facility] [employer] 09/25/2024 06:13:15 Date Recorded Body weight Body height Body weight Body height Provider Name and Address Organization Details Last Updated DateTime 09/26/2024 86548.999 6807 g 162.56 cm 50675.601 5882 g 162.56 cm Not Available [employer] [facility] [employer] 09/26/2024 05:53:24 Social History None recorded. Functional Status None recorded. Mental Status None recorded. Family History Nothing Reported. Medical History Condition Response Other Y Gynecological HistoryNo gynecological history recorded. Obstetrics History GPAL:G 0 P 0 0 0 0 Past Encounters Encounter ID Performer Location Encounter Start Date Encounter Closed Date Diagnosis/Indication Diagnosis SNOMED-CT Code Diagnosis ICD10 Code Diagnosis Note [id number] MAXIMUS TADEO [address] [address] 09/24/2024 10:08:57 09/24/2024 12:46:21 Obese class II [id number] 50955 E66.812 C-reactive protein above reference range 1119706520 07229 R79.82 -etiology uncertain, may be weight or other, will follow accordingl y sees cardiology yearly with annual ECHO Vitamin D deficiency 347 37567 E55.9 -start OTC vitmain D 2,000 IU daily Hyperlipidemia 01778321 E78.5 very mild, will follow with weight lossASCVD risk score 0.9% History of heart failure 474878198 Z86.79 sees cardiology yearly with annual ECHO Coarctation of aorta 730 5005 Q25.1 sees cardiology yearly with annual ECHO History of repair of mitral valve 778958042 Z98.890 sees cardiology yearly with annual ECHO Health Concerns Section Related Observation LastModified by Organization Detai ls LastModified Time None Recorded Concern Status LastModified by Organization Details LastModified Time None Recorded Advance Directives Directive None Recorded Payers None recorded. Notes Date Note Type Note Provider Name and Address Organization Details Recorded Time text/html Visit 09/25/2023 49 yr old Female with class 2 Obesity, h/o Heart failure s/p mitral valve repair (after 1st child), mild HLD, elevate hsCRP, vitamin D deficiency, coarctation of aorta presents for evaluation of weight management. I have confirmed that the patient is physically located in the state of {{[facility] A [facility] o [facility] }}Synchronous telemedicine service rendered via a real-time interactive audio and video communications system Referred ByPDr. John MartinezFzuozzaql[address] [place] [address] # [address] [phone] - [phone]; fax - ?VITALSHeight: 5'4 Weight:Highest weight/BMI: 210.0 lbs, BMI 36.0, aseline weight/BMI: 200.0 lbs, BMI 34.3Lowest adult weight/BMI: 160.0 lbs, BMI 27.5, 2018Last weight/BMI: 196.7 lbs, BMI 33.8Total weight loss (Highest - Last): -13.3 lbs / -6.3%Total weight loss (Baseline - Last): -3.3 lbs / -1.6%Last Blood Pressure: 126/85; Recorded on 09/23; DeviceAverage Blood pressure: 122/83; Range: 120-126/82-85; Dates: 08/25 - 09/23Last Pulse: 79; Recorded on 09/23; DeviceAverage Pulse: 74; Range: 69-79; Dates: 08/05 - 09/23WEIGHT HISTORY PCP asked her to join WW, lost 15 pounds, SoCTset up nutritionistweight <150 Weight gain coincided with: NoneCurrent lifestyle factors: SedentaryMotivation for weight loss: To look or feel betterChallenges: Hard to stick to a diet/programPrevious diets: WW (6 months, doesn't log any longer)Previous anti-obesity medications:Previous bariatric surgeries/procedures/devic es: no DIETARY RECALL (Last 3 logs)--Food Logged on 08-07-24--Breakfast: cheerios - 1 cup , milk - 0.5 cup , strawberries - 2 large , banana - 1 medium (7 to 7-7/8 long) , blackberries - 4 blackberry , coffee - 1 cup (8 fl oz) , coffee creamer - 1 tbspLunch:Dinner:Snacks:Be verages:Soda:Juice:Alcohol :Drinks with Sugar:Drinks with Artificial sweeteners:Other calorie-containing drinks:Nutrition facts: Calories: 316 Cruz, Total Fat: 6 g, Saturated Fat: 4 g, Trans Fat: 0 g, Cholesterol: 10 mg, Sodium: 214 mg, Total Carbs: 61 g, Fiber: 8 g, Sugar: 24 g, Protein: 8 gBR - egg and cheese sandwichLU - leftovere -DN - meatballs and rice no vegetable water - 1 coffee and water through ot out the day EATING BEHAVIORHistory of Eating Disorder: NoBinge Eating: NeverExcessive appetite: Sometimes - feels like wants to eat entire whoel plase, and eats quikcly, , feels fullsGrazing: Sometimes - as gets home from work, and grabbing food while cookingCravings: Sometimes - saltyTrigger for Overeating: Yes - NonePercentage of Daily Calories consumed after dinnertime: 0-25%Eating window:Biggest Meal of the day: DinnerWeekly Restaurant/Take out Meals: WE - Tuesday and TuesdayDietary Strategies that are appealing: MediterraneanFood sensitivities/restrictions : noFoods/Drinks consumed regularly: Artificial sweetener in coffee, tea or other drinksMiddle of the night eating: noPHYSICAL ACTIVITYAverage daily steps: 5-10,000Activity Level: Lightly active (e.g., some light activity in daily life)Type of Activity:Duration and frequency/week: walkingTRAGiniDANNY INFO: 08/07/2024 - Walking, 59 min, Moderate, 239 calories burned;SLEEPHours of sleep per night: 8-10OSA Dx: NoSnoring: NoWitnessed Apnea: NoTreating sleep apnea adequately:Daytime Sleepiness: NoMedications to help with sleep:STOP-BANG score: 0/7Insomnia: NoPSYCHDepression: NoAnxiety: NoOther psych diagnoses:Current treatment:Provider(s):PAST MEDICAL/SURGICAL HISTORYWeight Classification: class 2 obesityConfirmed insulin resistance diagnosis: NoCancer types: no Otherdiagnoses: Congenital heart disease - 2007 long labor 40 hours - CHF and then repair of mitral valve, still followed by cardiology; was on diuretic after delivery prior to surgery; annual ECHO, unsure of EF, coarctation of aorta and mitral valve regurgitation No hx of pancreatitisNo hx of seizuresNo hx of glaucomaNo hx of kidney stones Surgeries:C sectionmitral vavle repairSOCIAL HISTORYOccupation: of elementary schoolprincipalMarital Status: (vasectomy)Children: 16 and 14 - no GDM, no pre eclampsiaAlcohol: Yes - occasionalInterested in drinking less: NoNicotine/Tobacco: NoRecreational drugs: noHistory of drug abuse/addiction:FAMILY HISTORYOverweight/Obesity: noT2DM, prediabetes, insulin resistance, PCOS: NoMEN2 or MTC:Mom - melanoma back of neck and legDad - Alzheimer's, deceasedMEDICATIONSMedicat ions:-? A spirinSupplements:severoil TeriERGIESreconciledLABS/ IMAGINGLabs Reviewed(09/24/2024)08/15/19 25A1C: 5.5%insulin: 9.5 KASIA-IR 2.0TSH: 3.45Vitamin B12: 50877MG Vitamin D: 23hs CRP: 4.3CMP: glucose 87, BUN 10, creat 0.54, eGFR 113, Na 137, K 4.2, Cl 103, bicarb 25, Ca 9.2, Tpro 7.0, albumin 4.3, Tbili 0.5, alk phos 50, AST/ALT LIPID: TC 178, HDL 53, TG 130, LDL 102CBC WBC 11 (3.8-10.8) no anemia MONICA MELENDREZ, MAIL OFFICER-C [address] [place] [address],[address] [place] [address], [place], [address], [facility]. - [facility] 09/24/2024 12:46:18 OBGyn Episode No OBEpisode recorded.
--- OUTSIDE RECORDS SUMMARY | 2024-09-26 18:46 | XMS_ITS | Continuity of Care Document ---
Author Organization [email or web address]. - [facility], [facility] [employer] [facility] Address [address] [place] [id number] Assessment Encounter Date Assessment Date Assessment LastModified [...] time, time reviewing and independently interpreting results, [id number] time with the patient, counseling/educati ng patient/family members/caregivers , ordering medications/tests/ procedures, care coordination, documenting clinical information in the electronic medical record, following up on referrals/results and communicating with related healthcare professionals as needed. Followup: Lab Order Set: Appt w/ MD: Appt w/ GENDER STUDIES PROFESSOR: 3 months Appt w/ RD: declined- working [...] tablet,e xtended release 24 hr 2024 025 [facility][id number], [address] [place], [address], 09/24/2024 11:05:11 Patient TargetsNo targets recorded. Patient Instructions Encounter Date Encounter Id Patient Instructions Last Modified By Organization Details Last Modified Time 09/24/2024 [id number] Shiva Dixon, It was great to meet you today! Here are some osei takeaways (and things we may not have discussed). --Utilize Firebase everett (formerly [employer]) - modules and food log - Start with Healthy Eating for Weight Loss, and then continue modules, try once weekly AND try logging meals, snacks, beverages to help keep you accountable -- Log weight 1-2 times weekly in Firebase everett (formerly [employer]). Daily or weekly is perfectly acceptable. Keep scale on hard surface, tap scale with your toes/foot to wake it up, and then step on scale. Try to weigh in the morning after emptying your bladder, with similar clothing from day to day. --Log blood pressure at least once in [employer] everett (formerly [employer]). Best practice is to sit in a chair with back supported, feet on the ground and place arm across table (kitchen/dining room table or desk is ideal), place cuff on arm. Wait 5 minutes, and then check your blood pressure. Goal BP <130/80, if higher, check weekly. Otherwise, check before visits with any of the clinicians with Firebase. --If you have any difficulties with your devices (weight scale and BP cuff) review the help section in [employer] everett (formerly [employer]). If that does not resolve the concern, please call [phone]. Typically you just have to remove devices from the box and start using, they should be programmed with your Firebase everett (formerly [employer]) before they are shipped out. -- Diet: [...] up with me in 3 months at [phone] --Best to use the portal for any electronic communication, so be sure to register for an account if you have not already. I look forward to working with you! Thank you for allowing me to be a part of your care team, Osiris Melendrez NP Firebase Supplement 220.0 lbs, BMI 39.0,itamin D 2,000 [...] FDA approved since 1995 (monotherapy - seizure); 2011 as Qsymia FOR WOMEN OF REPRODUCTIVE AGE: [...] courses and articles WEB RESOURCES for EXERCISE https://www.Xeko/channel/UC_y VoaEhz_TqBpPG5COXt Ng/about Erma Wu MD, certified wellness program manager https://www.Xeko/c/wwe1nyns Yes to next - mother daughter duo https://www.Xeko/@Kush Gifford/vide os and https://Dailybreak Media/ Elsy Olvera Walk at Home https://www.College Brewer/membe rship FREE MEMBERSHIP and there is a pay membership - choose free membership https://Godengo.ePantry / FREE MEMBERSHIP $$ https://PrepChamps/ $359.95/year or $39.95/month https://www.OfficeDrop.ePantry/ $119.99/year or $29.99/month Sleep Hygiene: -Setting a [...] Organization Details Recorded Time Obese class II [id number] 4105 Active 20[address] MAXIMUS TADEO [address] [place] [address],[address] [facility], [place], [address] , [facility]. - [facility] 11:04:02 Vitamin D deficien cy 13821310 Active 2024 5 - 25OHD 23 MAXIMUS TADEO [address] [place] [address],[address] [facility], [place], [address] , [facility]. - [facility] 12:32:12 C-reacti ve protein above referenc e range 11272282276 9104 Active 2024 5- hs CRP: 4.3 MAXIMUS TADEO [address] [place] [address],[address] [facility], [place], [address] , [facility]. - [facility] 12:32:27 Hyperlip idemia 92520508 Active 2024 MILD - 5- LIPID: TC 178, HDL 53, TG 130, LDL 102 MAXIMUS TADEO [address] [place] [address],[address], [place], [address] , [facility]. - [facility] 12:32:51 History of heart failure 048260545 Active 2024 after of first child, luisanashaonelia g mitral valve repair, followed by cardiolo gy yearly with annual ECHO MAXIMUS TADEO [address] [place] [address],[address] [facility], [place], [address] , [facility]. - [facility] 12:43:18 Coarctat ion of aorta 6804778 Active 2024 followed by cardiolo gy yearly with annual ECHO MAXIMUS TADEO [address] [place] [address],[address] [place] [address], [place], [address] , [facility]. - [facility] 5 12:43:22 History of repair of mitral valve 713970711 Active 2024 followed by cardiolo gy yearly with annual ECHO MAXIMUS TADEO [address] [place] [address],[address] [place] [address], [place], [address] , [facility]. - [facility] 5 12:43:48 Endocrin e/metabo lic screenin g Completed 202409/24/2024 MAXIMUS TADEO [address] [place] [address],[address] [place] [address], [place], [address] , [facility]. - [facility] 5 10:15:55 Obesity 750023122 Active 2024 [facility], [facility]. - [facility] 08:07:38 Problem Notes None recorded. Medical Equipment [...] Address Organization Details Last Updated DateTime 09/24/2024 44150.076417 4 g 162.56 cm Not Available [employer] 09/24/2024 05:58:14 Date Recorded Body height Heart rate Body mass index (BMI) Body weight Systolic blood pressure Diastolic blood pressure Provider Name and Address Organization Details Last Updated DateTime 5 162.56 cm 79 /min 33.8 kg/m2 42491.6 2 g 126 mm[Hg] 85 mm[Hg] MAXIMUS TADEO [address] [place] [address],[address], [place], [address], [facility] [employer]. - [facility] 12:21:31 Social History None recorded. Functional Status None recorded. Mental Status None recorded. Family History Nothing Reported. Medical History Condition Response Other Y Gynecological HistoryNo gynecological history recorded. Obstetrics History GPAL:G 0 P 0 0 0 0 Past Encounters Encounter ID Performer Location Encounter Start Date Encounter Closed Date Diagnosis/Indication Diagnosis SNOMED-CT Code Diagnosis ICD10 Code Diagnosis Note [id number] MAXIMUS TADEO [address] [address] 09/24/2024 10:08:57 09/24/2024 12:46:21 Obese class II 6069143323 69534 E66.812 C-reactive protein above reference range 1079461783 42899 R79.82 -etiology uncertain, may be weight or other, will follow accordingl y sees cardiology yearly with annual ECHO Vitamin D deficiency 347 90986 E55.9 -start OTC vitmain D 2,000 IU daily Hyperlipidemia 52704261 E78.5 very mild, will follow with weight lossASCVD risk score 0.9% History of heart failure 103947077 Z86.79 sees cardiology yearly with annual ECHO Coarctation of aorta 730 5005 Q25.1 sees cardiology yearly with annual ECHO History of repair of mitral valve 794156538 Z98.890 sees cardiology yearly with annual ECHO Health Concerns Section Related Observation LastModified by Organization Detai ls LastModified Time None Recorded Concern Status LastModified by Organization Details LastModified Time None Recorded Payers None recorded. Notes Date [...] is physically located in the state of {{[place] [facility] [place] as [facility] e [facility]* [facility] [place] [facility] }}Synchronous telemedicine service rendered via a real-time interactive audio and video communications system Referred ByPDr. John Abdalla[address] [place] [address] # [facility] [place] [address]f - [phone]; fax - ?VITALSHeight: 55 Weight:Highest weight/BMI: 210.0 lbs, BMI 36.0, 2024Baseline weight/BMI: 200.0 lbs, BMI 34.3Lowest adult weight/BMI: [...] of the day: DinnerWeekly Restaurant/Take out Meals: - Tuesday and TuesdayDietary Strategies that are appealing: MediterraneanFood sensitivities/restrictions : noFoods/Drinks consumed regularly: Artificial sweetener in coffee, tea or other drinksMiddle of the night eating: noPHYSICAL ACTIVITYAverage daily steps: 5-10,000Activity Level: Lightly active (e.g., some light activity in daily life)Type of Activity:Duration and frequency/week: walkingTRACKER INFO: 08/07/2024 - Walking, 59 min, Moderate, [...] and legDad - Alzheimer's, deceasedMEDICATIONSMedicat ions:-? A spirinSupplements:reconcil edALLERGIESreconciledLABS/ IMAGINGLabs Reviewed(09/24/2024)08/15/19 25A1C: 5.5%insulin: 9.5 KASIA-IR 2.0TSH: 3.45Vitamin B12: 94870OV Vitamin D: 23hs CRP: 4.3CMP: glucose 87, BUN 10, creat 0.54, eGFR 113, Na 137, K 4.2, Cl 103, bicarb 25, Ca 9.2, Tpro 7.0, albumin 4.3, Tbili 0.5, alk phos 50, AST/ALT LIPID: TC 178, HDL 53, TG 130, LDL 102CBC WBC 11 (3.8-10.8) no anemia MONICA MELENDREZ, TRAV-C [address] [facility],[address], [place], [address], [facility]. - [facility] 09/24/2024 12:46:18 OBGyn Episode No OBEpisode recorded.
== END 2024-09-26 16:35 | disposition home or self-care (01) ==
LOC: HO.HMCSH 15:46
PROVIDERS: PCP Internal Medicine; Visit Provider Physician Assistant Medical
DX: E66.811 Obesity, class 1 (principal)

== ENCOUNTER → 2024-09-26 15:46 | Outpatient (BNVA) | payer BC, SELFPAY | PROVIDERS: PCP Internal Medicine; Visit Provider Physician Assistant Medical | DX: E66.811 Obesity, class 1 (principal); Z68.34 Body mass index [BMI] 34.0-34.9, adult; E78.5 Hyperlipidemia, unspecified; I11.0 Hypertensive heart disease with heart failure; I50.9 Heart failure, unspecified | CPT/HCPCS: 96127 ==